=== PATIENT | male | born 1985 | race Hispanic/Latino ===

== ENCOUNTER 2016-11-18 10:44 | Emergency (ER) | payer BC, SELFPAY ==
[2016-11-18] MEDS ORDERED: Ibuprofen 200 MG TAB ONE (11:33)
--- NOTE | 2016-11-18 11:42 | RAD ---
CHEST TWO VIEWS: History: Cough and fever. FINDINGS: No comparison. The cardiac silhouette is unremarkable. Pulmonary vasculature is upper limits of norm al and accentuated by shallow inspiration. Mediastinum is midline. There is no confluent airspace co nsolidation, pneumothorax, or pleural fluid evident. IMPRESSION: Central interstitial prominence is favored to be related to borderline pulmonary vascular congestion . No lobar consolidation or other active cardiopulmonary abnormalities are demonstrated. POS: [facility]
== END 2016-11-18 14:35 | disposition home or self-care (01) ==
LOC: ERS 10:44
DX: J06.9 Acute upper respiratory infection, unspecified (principal)
CPT/HCPCS: 71020; 96360